=== PATIENT | male | born 1970 | race Caucasian/White ===

== ENCOUNTER 2025-07-08 12:13 | Emergency (ER) | payer OTHER, SELFPAY ==
[2025-07-08 12:24] VITALS: BP 149/91; PULSE 62; TEMP 36.4; O2SAT 97; BMI 35.9
--- NOTE | 2025-07-08 12:33 | CT_ITS ---
The [address] [address] Patient Name: PAULA CHOU MRN: [id number] date: 1970 Sex: M Assigned Patient Location: ED.MAIN Current Patient Location: ED.MAIN Accession/Order Number: [id number] Exam Date: 07/08/2025 12:45 Report Date: 07/08/2025 13:32 At the request of: KALLI BECKWITH DO Procedure: CT angio LE RT CT angio LE RT 07/08/2025 12:55 PM SIGNS AND SYMPTOMS: nail gun to right proximal thigh, r/o vasc. injury CONTRAST: 100 mL of intravenous Omnipaque 350 TECHNIQUE: Multiple detector CT axial slices of the right lower extremity were obtained with IV contrast. Multiplanar and 3-D reformats were performed and viewed on a separate workstation and reviewed to further define anatomy and possible pathology. CT was performed with one or more of the following dose reduction techniques: Automated exposure control, adjustment of the mA and/or kV according to patient size, or use of iterative reconstruction technique. COMPARISON: None. FINDINGS: There is soft tissue edema and small hematoma in the anterior soft tissues of the medial and proximal right thigh with edema extending along the anterior fascial plane of the anterior thigh musculature. There is no evidence of accompanying vascular injury. No dissection or occlusion. No active contrast extravasation. The bones are intact. No abnormal radiopaque foreign body. CT/CT angio LE RT IMPRESSION: There is soft tissue edema and small hematoma in the anterior soft tissues of the medial and proximal right thigh with edema extending along the anterior fascial plane of the anterior thigh musculature. There is no evidence of accompanying vascular injury. No dissection or occlusion. No active contrast extravasation. Impression dictated by: Javan Aragon M.D. 07/08/2025 1:32 PM Dictation Location: [place] [address] Electronically authenticated by: [id number] Y Date: 07/08/2025 13:32
[2025-07-08 12:46] VITALS: O2SAT 99
[2025-07-08 12:51] LABS: Hematocrit 47.9 % (42.0-54.0); Hemoglobin 16.7 g/dL (14.0-18.0); Immature Granulocytes Abs Auto 0.02 10^3/uL (0.00-0.03); Immature Granulocytes Pct Auto 0.2 % (0.0-0.5); Lymphocytes Absolute Auto 3.7 10^3/uL (1.2-3.8); Mean Corpuscular HGB Conc 34.9 g/dL (29.9-35.2); Mean Corpuscular Hemoglobin 30.2 pg (25.9-34.0); Mean Corpuscular Volume 86.6 fL (80.0-94.0); Platelet Count 240 10^3/uL (150-450); Red Blood Count 5.53 10^6/uL (4.70-6.10); White Blood Count 8.7 10^3/uL (4.0-11.0)
[2025-07-08 12:57] LABS: Anion Gap 9.9; Blood Urea Nitrogen 24.0 mg/dL (7.0-18.0); Calcium 8.8 mg/dL (8.5-10.1); Carbon Dioxide 26.8 mmol/L (21.0-32.0); Chloride 106 mmol/L (98-107); Estimated GFR (African America >60 (>=60 mL/min/1.73m^2); Estimated GFR (Non-African Ame >60 (>=60 mL/min/1.73m^2); Glucose 154 mg/dL (74-106); Potassium 3.7 mmol/L (3.5-5.1); Sodium 139 mmol/L (136-145)
[2025-07-08] MEDS: DIPHTH,PERTUSS(ACELL),TET VAC 0.5 ML SYRINGE IM (13:56)
[2025-07-08 14:01] VITALS: BP 132/74; PULSE 73; O2SAT 99
--- NOTE | 2025-07-08 14:28 | ED.GENADUL1 ---
HPI HPI - General Adult General Chief complaint: Extremity Injury, Lower Stated complaint: LOWER EXTREMITY INJURY Time Seen by Provider: 07/08/25 12:22 Source: patient Mode of arrival: Wheelchair History of Present Illness HPI narrative: Patient is a 55-year-old male presenting to the emergency department for evaluation of a right leg injury. Patient was using a nail gun just prior to arrival when he accidentally shot the nail into his proximal thigh. He states there was a moderate amount of bleeding, however it stopped prior to his arrival to the ED. The nail was clean, and approximately 1.5 inches in length. He denies any other injuries. He denies any numbness/tingling/weakness in the right lower extremity. He is not on blood thinners. Unsure of his last tetanus shot. Related Data Previous Rx's ?Medication ?Instructions ?Recorded cephalexin 500 mg capsule 500 mg PO BID 3 days #6 caps 07/08/25 Allergies Allergy/AdvReac Type Severity Reaction Status Date / Time Sulfa (Sulfonamide Allergy welts Verified 07/08/25 12:24 Antibiotics) Opioid HPI Opioid Management Most Recent Opioid Data: Last Pain Scale 6 Today, 12:43 Review of Systems ROS Status of ROS 10 or more systems reviewed and unremarkable except as noted in history and below PFSH PFSH Social History Little interest or pleasure in doing things: not at all Feeling down, depressed, or hopeless: not at all Exam Narrative Exam Narrative: CONSTITUTIONAL: Well-appearing, answering questions and following commands appropriately SKIN: Was warm and dry. EYES: Sclerae white. EARS, NOSE, THROAT: Moist oral mucosa. RESPIRATORY: Nonlabored respirations. CARDIOVASCULAR: Normal rate and regular rhythm. 2+ femoral and DP pulse on the right. GASTROINTESTINAL: Abdomen is nondistended. MUSCULOSKELETAL: There is a small puncture wound on the proximal, medial right thigh with a small hematoma. No active bleeding. Full ROM in the RLE. NEUROLOGIC: Patient is awake and alert. Ambulates with a steady gait. Sensation intact to light touch throughout the RLE. Constitutional Vital Signs, click to edit/add: Last Vital Signs Temp 97.5 F L 07/08/25 12:24 Pulse 73 07/08/25 14:01 Resp 18 07/08/25 14:01 BP 132/74 07/08/25 14:01 Pulse Ox 99 07/08/25 14:01 O2 Del Method Room Air 07/08/25 14:01 Course Vital Signs Vital signs: Vital Signs Temperature 97.5 F L 07/08/25 12:24 Pulse Rate 62 07/08/25 12:24 Respiratory Rate 18 07/08/25 12:24 Blood Pressure 149/91 H 07/08/25 12:24 Pulse Oximetry 97 07/08/25 12:24 Oxygen Delivery Method Room Air 07/08/25 12:24 Temperature 97.5 F L 07/08/25 12:24 Pulse Rate 73 07/08/25 14:01 Respiratory Rate 18 07/08/25 14:01 Blood Pressure 132/74 07/08/25 14:01 Pulse Oximetry 99 07/08/25 14:01 Oxygen Delivery Method Room Air 07/08/25 14:01 Medical Decision Making MDM Narrative Medical decision making narrative: Patient is a 55-year-old male presenting to the emergency department after accidentally puncturing himself in the right proximal thigh with a nail gun just prior to arrival. Patient is hemodynamically stable with normal vital signs. He is neurovascularly intact in the right lower extremity. There is a small hematoma underlying the puncture site. Differential diagnose includes hematoma. I did obtain a CTA to rule out vascular injury as the wound is near the femoral artery/vein. He was given a Tdap shot. CTA of the right lower extremity demonstrated no evidence of acute vascular injury. Small hematoma. Laboratory studies were unremarkable. No significant electrolyte or metabolic derangement. No evidence of acute kidney injury. No anemia, leukocytosis, or thrombocytopenia. I do believe the patient is stable for discharge. His bleeding is controlled. They were instructed to follow up with his PCP as needed. Return precautions were given including any new or worsening symptoms. They were given a prescription for Keflex 500 mg twice daily x 3 days for prophylaxis acute soft tissue infection. Patient understands and agrees to the plan. FINAL IMPRESSION: #Acute right lower extremity hematoma DISPOSITION: Discharged home CONDITION: Good Lab Data Lab results reviewed: Yes I reviewed the patient's lab results Labs: Lab Results 07/08/25 Range/Units 12:37 WBC 8.7 (4.0-11.0) 10^3/uL RBC 5.53 (4.70-6.10) 10^6/uL Hgb 16.7 (14.0-18.0) g/dL Hct 47.9 (42.0-54.0) % MCV 86.6 (80.0-94.0) fL MCH 30.2 (25.9-34.0) pg MCHC 34.9 (29.9-35.2) g/dL RDW 11.9 (11.0-15.0) % Plt Count 240 (150-450) 10^3/uL MPV 10.4 (9.5-13.5) fL Neut % (Auto) 48.1 (43.0-75.0) % Lymph % (Auto) 41.8 (20.5-60.0) % [place] % (Auto) 6.1 (1.7-12.0) % Eos % (Auto) 2.7 (0.9-7.0) % Baso % (Auto) 1.1 (0.2-2.0) % Neut # (Auto) 4.2 (1.4-6.5) 10^3/uL Lymph # (Auto) 3.7 (1.2-3.8) 10^3/uL [place] # (Auto) 0.5 (0.3-0.8) 10^3/uL Eos # (Auto) 0.2 (0.0-0.7) 10^3/uL Baso # (Auto) 0.1 (0.0-0.1) 10^3/uL Abs Immat Gran (auto) 0.02 (0.00-0.03) 10^3/uL Imm/Tot Granulo (auto) 0.2 (0.0-0.5) % Sodium 139 (136-145) mmol/L Potassium 3.7 (3.5-5.1) mmol/L Chloride 106 (98-107) mmol/L Carbon Dioxide 26.8 (21.0-32.0) mmol/L Anion Gap 9.9 BUN 24.0 H (7.0-18.0) mg/dL Creatinine 1.13 (0.70-1.30) mg/dL Est GFR ( Amer) >60 (>=60 mL/min/1.73m^2) Est GFR (Non-Af Amer) >60 (>=60 mL/min/1.73m^2) BUN/Creatinine Ratio 21.2 Glucose 154 H (74-106) mg/dL Calcium 8.8 (8.5-10.1) mg/dL Imaging Data CTA RLE: Attestation: I personally reviewed and interpreted this imaging study as follows: Radiologist's impression: ITS Impressions Lower Extremity CTA 07/08/25 12:33 IMPRESSION: There is soft tissue edema and small hematoma in the anterior soft tissues of the medial and proximal right thigh with edema extending along the anterior fascial plane of the anterior thigh musculature. There is no evidence of accompanying vascular injury. No dissection or occlusion. No active contrast extravasation. Impression dictated by: Javan Aragon M.D. 07/08/2025 1:32 PM Dictation Location: [facility] [employer] Electronically authenticated by: [id number] Y Date: 07/08/2025 13:32 Discharge Plan Discharge Chief Complaint: Extremity Injury, Lower Clinical Impression: Hematoma of leg Patient Disposition: Home, Self-Care Time of Disposition Decision: 13:38 Condition: Good Mode of Transportation: Private Vehicle Prescriptions / Home Meds: New cephalexin 500 mg capsule 500 mg PO BID 3 Days Qty: 6 0RF Print Language: Japanese Instructions: Hematoma (ED) Referrals: Physician,Non-Staff, MD [Primary Care Provider] - 1 week Discharge Date/Time: 07/08/25 14:02
== END 2025-07-08 14:02 | disposition home or self-care (01) ==
PROVIDERS: Emergency Provider Student in an Organized Health Care Education/Training Program
DX: S70.11XA Contusion of right thigh, initial encounter (principal); W29.4XXA Contact with nail gun, initial encounter; Z23 Encounter for immunization
CPT/HCPCS: 36415; 73706; 80048; 85025; 90471; 90715; 99284; Q9967

== ENCOUNTER 2025-07-16 19:23 | Emergency (ER) | payer OTHER, SELFPAY ==
[2025-07-16 19:53] VITALS: BP 180/94; PULSE 62; TEMP 37; O2SAT 97; BMI 35.9
--- NOTE | 2025-07-16 20:00 | PC.NURSE ---
Puncture site to right upper leg with scab intact, no redness or drainage at site, dark purple/brown/yellow bruising noted below area. Patient reports swelling to thigh area if standing for long periods.
--- NOTE | 2025-07-16 20:07 | ED_ITS ---
HPI HPI - General Adult General Chief complaint: Wound/Laceration Stated complaint: IRRITATION FROM RECENT INJURY Time Seen by Provider: 07/16/25 19:40 Source: patient Mode of arrival: walk-in History of Present Illness HPI narrative: This 55-year-old male presents for evaluation of an ongoing hematoma of the medial aspect of the right leg. The patient had a puncture wound with a nail gun into the medial aspect of the left thigh 10 days ago. He was seen and evaluated in the emergency department. CT scan was performed. He does not show any arterial bleeding. Since that time he has had pain with ambulating and a large hematoma has developed to the medial aspect of his right lower extremity. He has pain with ambulation. He has not had a fever. He has been using Aleve for relief of his pain. He is not on any blood thinners. He has not had any fever. He received tetanus and antibiotics. CT scan of the lower extremity at the time of the injury did not show any vascular injury. He did not have any pulsatile bleeding at any time after the accident. Related Data Previous Rx's ?Medication ?Instructions ?Recorded cephalexin 500 mg capsule 500 mg PO BID 3 days #6 caps 07/08/25 Allergies Allergy/AdvReac Type Severity Reaction Status Date / Time Sulfa (Sulfonamide Allergy welts Verified 07/16/25 19:51 Antibiotics) Opioid HPI Opioid Management Most Recent Opioid Data: Last Pain Scale 6 07/08/25, 12:43 Review of Systems ROS Status of ROS 10 or more systems reviewed and unremark able except as noted in history and below PFSH PFSH Social History Little interest or pleasure in doing things: not at all Feeling down, depressed, or hopeless: not at all Exam Narrative Exam Narrative: Vital signs and Nursing Notes reviewed: Pt is afebrile with a normal pulse, blood pressure is elevated at 180/94, he is not hypoxic with pulse ox of 97% on room air General: Awake, alert, oriented, no acute distress, lying comfortably on the stretcher-moves easily about the room, able to remove his sweatpants by standing on 1 foot HEENT: Normocephalic atraumatic, mucous membranes are moist and pink, eyes are clear, normal conjunctiva Chest: Lungs are clear to auscultation with good air entry, there is no wheezing rhonchi or rales appreciated no accessory muscle use, patient is speaking in complete sentences-no chest wall tenderness to palpation CVS: Regular rate and rhythm S1-S2, no murmurs rubs or gallops, pulses are brisk and equal bilaterally ABD: Soft, nondistended, nontender, no rebound guarding or rigidity, bowel sounds are normal, no pulsatile masses appreciated Extremities: Large hematoma of the right thigh, medial aspect, anterior aspect of the hematoma is yellow-green in color and the posterior aspect of the hematoma is dark purple and wraps around to the posterior upper leg, the hematoma does not expand beyond the knee. Lower extremity is nontender. Patient is able to flex and extend at the hip and knee. Femoral pulse and dorsalis pedis pulse are brisk Skin: Large hematoma of the right lower extremity with a puncture wound at the medial aspect of the thigh, no sign of infection, cellulitis or abscess. Neuro: No focal deficits Constitutional Vital Signs, click to edit/add: Last Vital Signs Temp 98.6 F 07/16/25 19:53 Pulse 62 07/16/25 19:53 Resp 07/16/25 19:53 BP 180/94 H 07/16/25 19:53 Pulse Ox 97 07/16/25 19:53 O2 Del Method Room Air 07/16/25 19:53 Course Vital Signs Vital signs: Vital Signs Temperature 98.6 F 07/16/25 19:53 Pulse Rate 62 07/16/25 19:53 Respiratory Rate 20 07/16/25 19:53 Blood Pressure 180/94 H 07/16/25 19:53 Pulse Oximetry 97 07/16/25 19:53 Oxygen Delivery Method Room Air 07/16/25 19:53 Temperature 98.6 F 07/16/25 19:53 Pulse Rate 62 07/16/25 19:53 Respiratory Rate 07/16/25 19:53 Blood Pressure 180/94 H 07/16/25 19:53 Pulse Oximetry 97 07/16/25 19:53 Oxygen Delivery Method Room Air 07/16/25 19:53 Medical Decision Making [facility] Narrative Medical decision making narrative: 55-year-old male who accidentally punctured his right upper thigh with a nail gun 10 days ago presents for evaluation of a hematoma to the medial aspect of the left thigh in the adductor muscle group. A CT scan was done at the time of his injury to rule out vascular injury. This was negative. He has been taking Aleve for discomfort. He has recently been having increased pain and when he is ambulatory there is swelling at the medial aspect of the thigh. He has a large purple and yellow hematoma from the upper thigh to the end of the thigh that wraps around posteriorly. He has a normal femoral pulse and dorsalis pedis pulse. His hemoglobin was 16 at the time of his injury, today is 14. Ultrasound of the extremity does not show any DVT. I explained to him that this will take a period of time to resolve as he had a muscular injury with bleeding into the fascial plane of his adductor muscle group. I suggested that he discontinue taking Aleve and ibuprofen and start taking Tylenol based medications. He will be given a dose of Nesbit to use at home for pain that is not controlled by Tylenol. He is otherwise stable for discharge. Lab Data Labs: Lab Results 07/16/25 Range/Units 20:55 WBC 8.4 (4.0-11.0) 10^3/uL RBC 4.74 (4.70-6.10) 10^6/uL Hgb 14.5 (14.0-18.0) g/dL Hct 41.6 L (42.0-54.0) % MCV 87.8 (80.0-94.0) fL MCH 30.6 (25.9-34.0) pg MCHC 34.9 (29.9-35.2) g/dL RDW 11.9 (11.0-15.0) % Plt Count 236 (150-450) 10^3/uL MPV 9.9 (9.5-13.5) fL Neut % (Auto) 66.8 (43.0-75.0) % Lymph % (Auto) 20.7 (20.5-60.0) % [place] % (Auto) 7.7 (1.7-12.0) % Eos % (Auto) 3.6 (0.9-7.0) % Baso % (Auto) 1.0 (0.2-2.0) % Neut # (Auto) 5.6 (1.4-6.5) 10^3/uL Lymph # (Auto) 1.7 (1.2-3.8) 10^3/uL [place] # (Auto) 0.6 (0.3-0.8) 10^3/uL Eos # (Auto) 0.3 (0.0-0.7) 10^3/uL Baso # (Auto) 0.1 (0.0-0.1) 10^3/uL Abs Immat Gran (auto) 0.02 (0.00-0.03) 10^3/uL Imm/Tot Granulo (auto) 0.2 (0.0-0.5) % Discharge Plan Discharge Chief Complaint: Wound/Laceration Clinical Impression: Hematoma of leg Patient Disposition: Home, Self-Care Time of Disposition Decision: 21:20 Condition: Good Prescriptions / Home Meds: No Action cephalexin 500 mg capsule 500 mg PO BID 3 Days Qty: 6 0RF Print Language: Armenian Instructions: Hematoma (ED) Additional Instructions: Use Tylenol and warm compresses over the hematoma on your inner leg. Return to the emergency department for fever, redness, increased swelling or any concerns. Use Tylenol based medications instead of Aleve or Motrin for pain. Referrals: Physician,Non-Staff, MD [Primary Care Provider] - 1 week
[2025-07-16 21:06] LABS: Hematocrit 41.6 % (42.0-54.0); Hemoglobin 14.5 g/dL (14.0-18.0); Immature Granulocytes Abs Auto 0.02 10^3/uL (0.00-0.03); Immature Granulocytes Pct Auto 0.2 % (0.0-0.5); Lymphocytes Absolute Auto 1.7 10^3/uL (1.2-3.8); Mean Corpuscular HGB Conc 34.9 g/dL (29.9-35.2); Mean Corpuscular Hemoglobin 30.6 pg (25.9-34.0); Mean Corpuscular Volume 87.8 fL (80.0-94.0); Platelet Count 236 10^3/uL (150-450); Red Blood Count 4.74 10^6/uL (4.70-6.10); White Blood Count 8.4 10^3/uL (4.0-11.0)
[2025-07-16] MEDS: ONDANSETRON 4 MG RAPDIS TABLET SL (21:48)
[2025-07-16] MEDS: HYDROCODONE/ACET 5-325 MG TABLET PO (21:48)
== END 2025-07-16 22:04 | disposition home or self-care (01) ==
PROVIDERS: Emergency Provider Emergency Medicine
DX: S70.11XA Contusion of right thigh, initial encounter (principal); W29.4XXA Contact with nail gun, initial encounter
CPT/HCPCS: 36415; 85025; 93971; 99284; Q0162